=== PATIENT | male | born 1950 | race Caucasian/White ===

== ENCOUNTER 2022-11-26 10:45 | Emergency (ER) | payer MEDICARE, SELFPAY ==
[2022-11-26 10:54] VITALS: BP 159/93; PULSE 113; RESP 18; O2SAT 96; BMI 31.0
--- NOTE | 2022-11-26 11:22 | ED_ITS ---
HPI - General Adult General Chief complaint: Extremity Injury, Lower Stated complaint: THINKS HAS GOUT/L ANKLE & NOW ON R SIDE Time Seen by Provider: 11/26/22 10:58 Source: patient Mode of arrival: Carry Limitations: no limitations History of Present Illness HPI narrative: patient with history of gout attacks presents with pain and swelling in both ankles/feet. It started several days ago in the left foot but has since started to involve the right foot. Patient had a prescription for allopurinol but wasn't taking it. He is visiting from out of town so he called and had the prescription moved to a local pharmacy and started taking it. But the swelling and pain has worsened instead of getting better. No systemic complaints such as fever or chills He has atrial fib/atrial flutter for which he takes Eliquis. He denied any chest pain, shortness of breath but admits that the amount of leg swelling is unusual for him. Related Data Home Medications Medication Instructions Recorded Confirmed allopurinol 300 mg tablet 300 mg PO DAILY 11/26/22 11/26/22 apixaban 5 mg tablet (Eliquis) 5 mg PO Q12H 11/26/22 11/26/22 diltiazem HCl 240 mg 240 mg PO DAILY 11/26/22 11/26/22 capsule,extended release 24 hr (Cardizem CD) losartan 50 mg tablet (Cozaar) 50 mg PO DAILY 11/26/22 11/26/22 Previous Rx's Medication Instructions Recorded probenecid 500 mg-colchicine 0.5 1 tab PO BID 7 days #20 tabs 11/26/22 mg tablet Allergies Allergy/AdvReac Type Severity Reaction Status Date / Time celecoxib [From Celebrex] Allergy Intermediate Verified 11/26/22 11:00 [facility] Social History Smoking status: Never smoker Exam Narrative Exam Narrative: Nurses notes and vital signs reviewed and patient is not hypoxic. afebrile General: Well-appearing and in no apparent distress. Skin: Warm, dry, no pallor noted. Head: Normocephalic, atraumatic. Eye: Pupils are equal, round and EOMI. No scleral icterus. Cardiovascular: Regular Rate and Rhythm without murmur, gallop or rub. Respiratory: No accessory muscle use or respiratory distress. Lungs are clear to auscultation, no wheezing, rales or rhonchi Musculoskeletal: normal ROM, no calf or popliteal tenderness. Moderate bilateral lower extremity edema/swelling from the ankle through the toes of both feet. Neurological: A&O x4. No cranial nerve dysfunction observed. No truncal ataxia. Moves all extremities. Sensation intact. Psychiatric: Cooperative and interactive. Normal mood and affect. Constitutional Vital Signs, click to edit/add: Last Vital Signs Temp 98.6 F 11/26/22 11:57 Pulse 63 11/26/22 11:57 Resp 18 11/26/22 11:57 BP 123/80 11/26/22 11:57 Pulse Ox 96 11/26/22 11:57 O2 Del Method Room Air 11/26/22 10:54 Course Vital Signs Vital signs: Vital Signs Pulse Rate 113 H 11/26/22 10:54 Respiratory Rate 18 11/26/22 10:54 Blood Pressure 159/93 H 11/26/22 10:54 Pulse Oximetry 96 11/26/22 10:54 Oxygen Delivery Method Room Air 11/26/22 10:54 Temperature 98.6 F 11/26/22 11:57 Pulse Rate 63 11/26/22 11:57 Respiratory Rate 18 11/26/22 11:57 Blood Pressure 123/80 11/26/22 11:57 Pulse Oximetry 96 11/26/22 11:57 Oxygen Delivery Method Room Air 11/26/22 10:54 Medical Decision Making MDM Narrative Medical decision making narrative: CBC is with normal white blood cell count. BMP notable for elevated BUN at 20. Sedimentation rate and CRRP are elevated. Uric acid is normal. However the patient has been taking allopurinol for several days. The patient received an IM injection of Solu-Medrol and was discharged home with prescription for colchicine-probenecid. I encouraged him to see one of his local providers he returns home. Lab Data Labs: Lab Results 11/26/22 Range/Units 11:30 WBC 8.9 (4.0-11.0) 10^3/uL RBC 4.72 (4.70-6.10) 10^6/uL Hgb 13.5 L (14.0-18.0) g/dL Hct 41.9 L (42.0-54.0) % MCV 88.8 (80.0-94.0) fL MCH 28.6 (25.9-34.0) pg MCHC 32.2 (29.9-35.2) g/dL RDW 13.5 (11.0-15.0) % Plt Count 181 (150-450) 10^3/uL MPV 10.1 (9.5-13.5) fL Neut % (Auto) 84.3 H (43.0-75.0) % Lymph % (Auto) 7.1 L (20.5-60.0) % [place] % (Auto) 7.6 (1.7-12.0) % Eos % (Auto) 0.3 L (0.9-7.0) % Baso % (Auto) 0.2 (0.2-2.0) % Neut # (Auto) 7.5 H (1.4-6.5) 10^3/uL Lymph # (Auto) 0.6 L (1.2-3.8) 10^3/uL [place] # (Auto) 0.7 (0.3-0.8) 10^3/uL Eos # (Auto) 0.0 (0.0-0.7) 10^3/uL Baso # (Auto) 0.0 (0.0-0.1) 10^3/uL Abs Immat Gran (auto) 0.04 H (0.00-0.03) 10^3/uL Imm/Tot Granulo (auto) 0.5 (0.0-0.5) % ESR 53 H (<=20) mm/hr Sodium 136 (136-145) mmol/L Potassium 3.9 (3.5-5.1) mmol/L Chloride 101 (98-107) mmol/L Carbon Dioxide 27.5 (21.0-32.0) mmol/L Anion Gap 11.4 BUN 20.0 H (7.0-18.0) mg/dL Creatinine 1.09 (0.70-1.30) mg/dL Est GFR ( Amer) >60 (>=60) Est GFR (Non-Af Amer) >60 (>=60) BUN/Creatinine Ratio 18.3 Glucose 136 H (74-106) mg/dL Uric Acid 3.6 (3.5-7.2) mg/dL Calcium 9.0 (8.5-10.1) mg/dL Total Bilirubin 1.0 (0.2-1.0) mg/dL AST 8 L (15-37) U/L ALT 28 (16-63) U/L Alkaline Phosphatase 98 (46-116) U/L C-Reactive Protein 22.3 H (<=1.0) mg/dL NT-Pro-B Natriuret Pep 802.0 (<=900.0) pg/mL Total Protein 6.7 (6.4-8.2) g/dL Albumin 3.0 L (3.4-5.0) g/dL Globulin 3.7 g/dL Albumin/Globulin Ratio 0.8 Discharge Plan Discharge Chief Complaint: Extremity Injury, Lower Clinical Impression: Polyarthralgia, Edema, peripheral Patient Disposition: Home, Self-Care Time of Disposition Decision: 12:10 Prescriptions / Home Meds: New probenecid-colchicine 500-0.5 mg tablet 1 tab PO BID 7 Days Qty: 20 0RF No Action losartan [Cozaar] 50 mg tablet 50 mg PO DAILY Eliquis 5 mg tablet 5 mg PO Q12H diltiazem HCl [Cardizem CD] 240 mg capsule,extended release 24hr 240 mg PO DAILY allopurinol 300 mg tablet 300 mg PO DAILY Instructions: Leg Edema (ED), Arthralgia (ED) Stand Alone Forms: Portal Instructions Discharge Date/Time: 11/26/22 12:34
[2022-11-26] MEDS: METHYLPREDNISOLONE SOD SUCC PF 125 MG/2 ML VIAL IM (11:27)
[2022-11-26 11:35] LABS: Basophils Percent Auto 0.2 % (0.2-2.0); Eosinophils Percent Auto 0.3 % (0.9-7.0); Hematocrit 41.9 % (42.0-54.0); Hemoglobin 13.5 g/dL (14.0-18.0); Immature Granulocytes Abs Auto 0.04 10^3/uL (0.00-0.03); Immature Granulocytes Pct Auto 0.5 % (0.0-0.5); Lymphocytes Absolute Auto 0.6 10^3/uL (1.2-3.8); Lymphocytes Percent Auto 7.1 % (20.5-60.0); Mean Corpuscular HGB Conc 32.2 g/dL (29.9-35.2); Mean Corpuscular Hemoglobin 28.6 pg (25.9-34.0); Mean Corpuscular Volume 88.8 fL (80.0-94.0); Mean Platelet Volume 10.1 fL (9.5-13.5); Monocytes Absolute Auto 0.7 10^3/uL (0.3-0.8); Monocytes Percent Auto 7.6 % (1.7-12.0); Neutrophils Absolute Auto 7.5 10^3/uL (1.4-6.5); Neutrophils Percent Auto 84.3 % (43.0-75.0); Platelet Count 181 10^3/uL (150-450); Red Blood Count 4.72 10^6/uL (4.70-6.10); Red Cell Distribution Width 13.5 % (11.0-15.0); White Blood Count 8.9 10^3/uL (4.0-11.0)
[2022-11-26 11:48] LABS: Erythrocyte Sedimentation Rate 53 mm/hr (<=20)
[2022-11-26 11:52] LABS: Alanine Aminotransferase 28 U/L (16-63); Albumin Globulin Ratio 0.8; Alkaline Phosphatase 98 U/L (46-116); Anion Gap 11.4; Aspartate Amino Transferase 8 U/L (15-37); BUN Creatinine Ratio 18.3; Carbon Dioxide 27.5 mmol/L (21.0-32.0); Chloride 101 mmol/L (98-107); Estimated GFR (African America >60 (>=60); Estimated GFR (Non-African Ame >60 (>=60); Globulin 3.7 g/dL; Glucose 136 mg/dL (74-106); Potassium 3.9 mmol/L (3.5-5.1); Sodium 136 mmol/L (136-145); Total Protein 6.7 g/dL (6.4-8.2)
[2022-11-26 11:57] VITALS: BP 123/80; PULSE 63; RESP 18; TEMP 37; O2SAT 96
[2022-11-26 12:01] LABS: Uric Acid 3.6 mg/dL (3.5-7.2)
[2022-11-26 12:14] LABS: C Reactive Protein 22.3 mg/dL (<=1.0)
== END 2022-11-26 12:34 | disposition home or self-care (01) ==
PROVIDERS: Emergency Provider Emergency Medicine
DX: M79.672 Pain in left foot (principal); M79.671 Pain in right foot; R60.9 Edema, unspecified; I48.91 Unspecified atrial fibrillation; I48.92 Unspecified atrial flutter; Z79.01 Long term (current) use of anticoagulants; Z79.899 Other long term (current) drug therapy
CPT/HCPCS: 36415; 80053; 83880; 84550; 85025; 85652; 86140; 96372; 99284; J2930